=== PATIENT | female | born 1940 | race Caucasian/White ===

== ENCOUNTER 2017-03-21 21:38 | Emergency (ER) | payer MEDICARE, BC ==
--- NOTE | ~2017-03-21 | ER ---
PATIENT'S NAME: NICOLE MIN [facility] AGE: 76 Y [address] ROOM: [place] [address] LOCATION: [facility] ADMIT DATE: 03/21/2017 ER/Outpatient Report DISCHARGE DATE: 03/22/2017 FAMILY PHYSICIAN: Evie Alcantar APRN ATTENDING PHYSICIAN: Idris Lopez Time of Arrival: 2152 hours. Time of Evaluation: 2200 hours. CHIEF COMPLAINT: Nausea and vomiting. HISTORY OF PRESENT ILLNESS: The patient states she had surgery to the right hand today at [facility] by Dr. Finley to release the trigger finger. She has been nauseated and vomiting ever since taking her Caret this evening. She is supposed to be taking an antibiotic which she just does not feel as though she would be able to keep it down because of the nausea and vomiting that she is having. ALLERGIES: ON THE CHART AND REVIEWED BY ME. MEDICATIONS: On the chart and reviewed by me. PAST MEDICAL HISTORY: Hypertension, coronary artery disease. PAST SURGICAL HISTORY: Pacemaker. SOCIAL HISTORY: Denies use of tobacco, drugs, or alcohol and presents to the ER accompanied by her and son. REVIEW OF SYSTEMS: All negative other than those mentioned in the HPI. PHYSICAL EXAMINATION: VITAL SIGNS: She weighed 58.7 kg. Blood pressure is 183/84, pulse is 71, respirations 16, temperature of 97, O2 saturation was 97% on room air. GENERAL: She is awake, alert, and oriented x4. SKIN: Myra, warm, and dry. RESPIRATIONS: Even and nonlabored. Lung sounds are clear throughout. PATIENT'S NAME: NICOLE MIN [facility] AGE: 76 Y [address] ROOM: [place], [place] [address] LOCATION: [facility] ADMIT DATE: 03/21/2017 ER/Outpatient Report DISCHARGE DATE: 03/22/2017 FAMILY PHYSICIAN: Evie Alcantar APRN ATTENDING PHYSICIAN: Idris Lopez HEART: Regular rate and rhythm. ABDOMEN: Soft, nondistended. Bowel sounds are present. The patient was given Zofran 4 mg ODT. She continues to have nausea, is not feeling any better. EMERGENCY DEPARTMENT COURSE: Saline lock was initiated. Fluids of normal saline were started at a wide- open rate. Zofran was repeated at 4 mg IV. With rest and fluids, the patient reports she is feeling better. She was able to get up to the bathroom and urinate without any difficulty. Does not feel dizzy or lightheaded with activity. States the nausea is better. She did drink some Gatorade, was able to keep that down. IMPRESSION: Nausea. PLAN: Home, rest. Continue to sip fluids. Discussed with her use and just plain Tylenol for minimal pain and only take the Caret if she is able to take some food. If she continues to have problems with nausea and vomiting, she is to follow up with her primary provider. She and her family verbalized understanding. TAWNY MOORE APRN FOR MD KEVYN GAINES/olive /[id number] d: 03/22/17 0117 t: 04/07/17 0549, OUTPATIENT REPORT
[~2017-03-21 21:38] MED LIST: ASPIRIN EC81 MG PO; CALCIUM MAGNES1 EACH PO; CORGARD20 MG PO; COUMADIN **IA2.5 MG PO; MAGNESIUM250 M1 PO; PRAVACHOL20 MG PO; PRINIVIL (ZESTRI5 MG PO; RYTHMOL150 M1 PO; TYLENOL/COD#31 TAB PO; VITAMIN B-121000 MCG PO; VITAMIN B-6100 MG PO; VITAMIN D-32000 UNI1 PO; VITAMIN E1000 UNI1 PO
== END 2017-03-22 00:37 | disposition disaster alternative care site (69) ==
LOC: GMED 21:38
DX: R11.2 Nausea with vomiting, unspecified (principal); I10 Essential (primary) hypertension; I25.10 Atherosclerotic heart disease of native coronary artery without angina pectoris; Z79.2 Long term (current) use of antibiotics; Z79.82 Long term (current) use of aspirin; Z79.01 Long term (current) use of anticoagulants; Z79.891 Long term (current) use of opiate analgesic; Z79.899 Other long term (current) drug therapy; Z88.1 Allergy status to other antibiotic agents; Z88.5 Allergy status to narcotic agent; Z88.8 Allergy status to other drugs, medicaments and biological substances; Z95.0 Presence of cardiac pacemaker
CPT/HCPCS: J2405; J7030